=== PATIENT | male | born 1950 | race Caucasian/White ===

== ENCOUNTER 2017-01-26 09:27 | Day surgery (SDC) | payer MEDICARE ==
[2017-01-26] VITALS (8 sets, daily range): BP systolic 129–141; BP diastolic 67–75; PULSE 62–71; TEMP 98.1–98.9
[~2017-01-26] VITALS: Ht 185.4 cm; Wt 89.2 kg
[2017-01-26] MEDS ORDERED: FLOMAX 0.40.4 MG/CAP PO (10:31)
[2017-01-26] MEDS ORDERED: MULTIPLE VITAMI1 CAP PO (10:32)
== END 2017-01-26 16:45 | disposition home or self-care (01) ==
LOC: SDCO 09:27
DX: K40.90 Unilateral inguinal hernia, without obstruction or gangrene, not specified as recurrent (principal); N40.0 Benign prostatic hyperplasia without lower urinary tract symptoms; I10 Essential (primary) hypertension
CPT/HCPCS: C1781; J0690; J1100; J2270; J2405; J2704; J2710; J3010; J7120

== ENCOUNTER 2017-12-26 19:06 | Emergency (ER) | payer MEDICARE ==
[~2017-12-26] VITALS: Ht 185.4 cm; Wt 90.9 kg
[~2017-12-26 19:06] MED LIST: FLOMAX 0.40.4 MG/CAP PO; MULTIPLE VITAMI1 CAP PO
[2017-12-26 19:08] VITALS: TEMP 98.2
[2017-12-26] MEDS ORDERED: HCTZ12.5TAB PO (19:27)
[2017-12-26 19:31] LABS: BASO % 0.4 % (0.0-2.0); EOS # 0.1 (0.0-0.7); EOS % 1.8 % (0-4.0); GRAN # 3.5 (1.4-6.5); GRAN % 62.5 % (42.2-75.2); HEMATOCRIT 41.2 % (42.0-52.0); HEMOGLOBIN 14.4 g/dl (13.5-18.0); LYMPH # 1.6 (1.2-3.4); MEAN CELL VOLUME 91 fl (80.0-100.0); MEAN CORPUSCULAR HEMOGLOBIN 32 pg (27.0-31.0); MEAN CORPUSCULAR HGB CONC 35 g/dl (33.0-37.0); MEAN PLATELET VOLUME 9.6 fl (7.4-10.4); MONO # 0.4 (0.1-0.6); MONO % 6.9 % (1.7-9.3); PLATELET COUNT 178 K/mm3 (130-400); RED BLOOD COUNT 4.55 M/mm3 (4.20-5.60); REDCELL DISTRIBUTION WIDTH-CV 12.5 % (11.5-14.5)
[2017-12-26 19:40] LABS: ALANINE AMINOTRANSFERASE 26 U/L (21-72); ALBUMIN 4.6 gm/dL (3.5-5.0); ALKALINE PHOSPHATASE 80 U/L (50-136); ANION GAP 15 mmol/L (7-16); AST,SGOT 30 U/L (15-37); BILIRUBIN,TOTAL 0.5 mg/dL (0.0-1.0); BLOOD UREA NITROGEN 12 mg/dL (9-20); CALCIUM 9.2 mg/dL (8.4-10.2); CARBON DIOXIDE 23 mmol/L (22-30); CHLORIDE 102 mmol/L (98-107); CREATININE, serum 0.95 mg/dL (0.66-1.25); GLUCOSE 120 mg/dL (74-106); POTASSIUM 3.3 mmol/L (3.4-5.0); SODIUM 141 mmol/L (137-145); TOTAL PROTEIN 7.9 gm/dL (6.4-8.2)
[2017-12-26 19:53] LABS: TROPONIN-I < 0.012 ng/mL (0.000-0.034)
[2017-12-26] MEDS ORDERED: K-DUR 10 MEQ T10 MEQ PO (20:56)
[2017-12-26 21:03] VITALS: BP 148/83; PULSE 84
== END 2017-12-26 21:03 | disposition home or self-care (01) ==
LOC: COL.ER 19:06
PROVIDERS: Emergency Medicine
DX: R00.2 Palpitations (principal); E87.6 Hypokalemia
CPT/HCPCS: J1650

== ENCOUNTER → 2018-01-04 | Outpatient (CLI) | payer MEDICARE ==
[~2018-01-04] MED LIST changes: +HCTZ12.5TAB PO; +K-DUR 10 MEQ T10 MEQ PO
== END ==
LOC: COL.VAS 10:30
DX: I08.0 Rheumatic disorders of both mitral and aortic valves (principal); I48.91 Unspecified atrial fibrillation